=== PATIENT | female | born 1945 | race African-American/Black ===

== ENCOUNTER 2016-08-26 15:49 | Emergency (ER) | payer MEDICARE, OTHER ==
[~2016-08-26] VITALS: Ht 162.6 cm; Wt 65.0 kg
[~2016-08-26 15:49] MED LIST: ALBU0.08 NEB; AMIT10TA6 PO; AMLO5TAB2 PO; ATOR20TA15 PO; GABA100C4 PO; LISI-515 PO; MEDR4PAK PO; METF500T PO; NEBULIZER1 MI1 PO; OMEP20TA PO; REGL5TAB PO; SUMA25TA2 PO; TEMA15CA PO; VENTAER INH
[2016-08-26 15:51] VITALS: BP 134/75; PULSE 82; RESP 20; TEMP 97.7; O2SAT 100
[2016-08-26] MEDS ORDERED: CIPR0.3S RIGHT EAR (16:10)
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
[2016-09-01] MEDS ORDERED: MEDR4PAK PO (08:56)
== END 2016-08-26 16:31 | disposition home or self-care (01) ==
LOC: NEPK 15:49
DX: T16.1XXA Foreign body in right ear, initial encounter (principal); H60.91 Unspecified otitis externa, right ear; D64.9 Anemia, unspecified; E11.9 Type 2 diabetes mellitus without complications; K21.9 Gastro-esophageal reflux disease without esophagitis; I10 Essential (primary) hypertension; F17.200 Nicotine dependence, unspecified, uncomplicated; Z79.51 Long term (current) use of inhaled steroids; Z79.899 Other long term (current) drug therapy
CPT/HCPCS: 69200